=== PATIENT | female | born 1985 | race Caucasian/White ===

== ENCOUNTER 2019-05-28 14:30 | Outpatient (CLI) | payer OTHER ==
[2019-05-28] MEDS ORDERED: GADOBUTROL 7.5 MMOL/7.5 ML VIAL ONE (15:37)
[2019-05-28] MEDS ORDERED: GADOBUTROL 7.5 MMOL/7.5 ML VIAL IVP ONE (16:34)
--- NOTE | 2019-05-28 19:16 | MRI Report ---
Reason: HX OF BRAIN CA Procedure Date: 05/28/2019 Accession Number: [id number] / [id number] Procedure: MRI - Brain W/WO CPT Code: Final Report FULL RESULT: EXAM: MRI BRAIN WITHOUT AND WITH CONTRAST EXAM DATE: 05/28/2019 04:43 PM. 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 Evaluate for intracranial pathology. COMPARISON: None. TECHNIQUE: Multiplanar, multisequence T1-weighted and fluid-sensitive MR sequences of the brain were performed before and after administration of intravenous contrast. Sequences optimized for routine evaluation. Other: None. IV Contrast: 7 cc Gadavist. FINDINGS: Brain Volume: Normal for age. Parenchyma: Postsurgical changes of left frontal craniotomy for resection of a left frontal lobe mass lesion. A large resection cavity is seen within the left frontal lobe. There is no definite mass or masslike enhancement seen along the resection cavity margin. There is FLAIR signal hyperintensity seen along the resection cavity margin and extending into the left frontal lobe. There are additional few scattered foci of T2/FLAIR signal hyperintensity seen. No acute parenchymal hemorrhage, definite new mass, or midline shift. There are no areas of restricted diffusion seen to suggest acute infarct. There is susceptibility artifact associated with the resection cavity. There are susceptibility artifacts seen within the left caudothalamic groove and along the body of the right caudate. No abnormal enhancement. Ventricles/Cisterns: There is ex vacuo dilatation of the body of the left lateral ventricle. No evidence of hydrocephalus. No abnormal intraventricular hemorrhage.Postsurgical changes of left frontal craniotomy with underlying dural thickening enhancement that is likely postsurgical. No definite new abnormal extra-axial fluid collection/mass seen. Orbits: Symmetric and unremarkable. Sella Turcica: The pituitary gland, cavernous sinuses, suprasellar cistern and optic chiasm are unremarkable. IAC: Symmetric and unremarkable. Vasculature: Normal signal flow void is seen in the major arterial structures at the skull base. The dural sinuses are patent and enhance normally. Sinuses: No acute sinus disease. Bones: Postsurgical changes as detailed above. Other: None. IMPRESSION: 1. Postsurgical changes of left frontal craniotomy for resection of a left frontal lobe mass lesion. 2. There is a large resection cavity seen involving the left frontal lobe with no definite mass or masslike enhancement seen along or deep to the resection cavity margin. There is FLAIR signal hyperintensity seen along the resection cavity margin and extending into the left frontal lobe that may be post-therapeutic in nature. There is no definite evidence to suggest disease recurrence but comparison with prior studies would be of use. 3. No acute infarct or acute intracranial hemorrhage seen. [facility]
== END 2019-05-28 14:31 | disposition home or self-care (01) ==
LOC: DI 14:30
PROVIDERS: ATTEND Registered Nurse Diabetes Educator
DX: Z85.841 Personal history of malignant neoplasm of brain (principal)
CPT/HCPCS: 70553; A9585